=== PATIENT | male | born 1950 | race Caucasian/White ===

== ENCOUNTER → 2023-09-25 | Outpatient (CLI) | payer BC, MEDICARE ==
--- NOTE | 2023-09-28 13:42 | PE ---
EXAMINATION TYPE: PET CT fusion skull to thigh DATE OF EXAM: 09/25/2023 COMPARISON: No prior films at this location Prior PET/CT: No prior PET CTs at this location HISTORY: Head and neck neoplasm TECHNIQUE: Following the intravenous administration of 9.13 mCi of F-18 FDG, whole body images are p erformed from the skull base to the midthigh. Images are reviewed on the computer in the coronal, ax ial, and sagittal planes. Reconstructed rotating images are created on independent workstation and r eviewed on the computer. A localization and attenuation correction CT is performed in conjunction w ith the PET scan. DLP: 630.32 mGycm SCAN: Subsequent Blood glucose: 89 mg/dL Average Mediastinum SUV: 2.34 Average Liver SUV: 2.58 FINDINGS: NECK: There is increased uptake within the posterior tongue region, example image 11, SUV 5.66. This extends from the posterior oropharynx to the hypopharynx. This can be related to motion artifact. S ome extension into the right tonsillar pillar region is suspicious for the primary. There is a focus of radiotracer within the right angle of the jaw, example image 20, SUV 5.11. There is a focus of radiotracer in the region of the larynx. This extends towards the tracheostomy si te. SUV measurement, image 34, SUV 3.81. Dedicated HEAD and NECK Images: Uptake remains within the right tonsillar pillar. Image 36, SUV 7.49. Some focal uptake remains in the jugulodigastric region just anterior to the sternocleidomastoid mus leandro, image 40, SUV 4.53. THORAX: There is mild increased uptake within the posterior right lung base consolidation. SUV mean 2 .16 Max of 3.61, example image 101. This is nonspecific. Inflammatory change or neoplasm could be con sidered ABDOMEN: Liver is heterogenous. There appears to be typical scattered areas of uptake within loops of bowel. PELVIS: No suspicious uptake OSSEOUS STRUCTURES: There is a focus of radiotracer within a mid posterior thoracic vertebral level, example image 82, SUV 3.65. LOCALIZATION CT: May be some thickening in the inferior laryngeal region which corresponds to the upt harriett pacer lies above the right lobe thyroid. Consolidation is in the right lower lobe. Diffuse thicke federico through the urinary bladder wall. Prostate is somewhat prominent COMPARISON: Prior studies are available at this location. If prior examinations or PET CTs can be loc ated, an addendum report with comparison can be performed. IMPRESSION: 1. Uptake, best visualized on the dedicated head and neck imaging, is within the right tonsillar pill ar may be the patient's primary neoplasm. 2. There is a milder focus of radiotracer in the jugulodigastric region could be a metastatic lesion. 3. Prior examinations are unavailable at this location. An addendum report with comparison can be iss ued if prior studies can be provided.
== END | disposition home or self-care (01) ==
LOC: RADPETMAIN 15:00
PROVIDERS: ATTEND Radiology Radiation Oncology
DX: C10.8 Malignant neoplasm of overlapping sites of oropharynx (principal); C32.8 Malignant neoplasm of overlapping sites of larynx
CPT/HCPCS: 78815; A9552